=== PATIENT | male | born 1940 | race Caucasian/White ===

== ENCOUNTER 2017-11-27 18:27 | Inpatient (IN) | payer MEDICARE, OTHER ==
[~2017-11-27] VITALS: Ht 170.2 cm; Wt 63.0 kg
--- NOTE | 2017-11-27 | NUR ---
ZOSYN DOSE FROM ED, NON-ADMIN. TO ADMIN SCHEDULED DOSE OF ZOSYN. WAITING FOR [facility] SUPERVISOR BEN TO PROVIDE MED.
[2017-11-27] MEDS ORDERED: QUET25TA PO (18:41)
[2017-11-27] MEDS ORDERED: ACET-2605 PO (18:41)
[2017-11-27] MEDS ORDERED: LEVO200T9 PO (18:41)
[2017-11-27] MEDS ORDERED: DIVA250T6 PO (18:41)
[2017-11-27] MEDS ORDERED: DIVA125T2 PO (18:41)
[2017-11-27] MEDS ORDERED: ALBUTEROL SULFATE 2.5 MG/3 ML NEBU NEB ONE (18:45)
[2017-11-27] MEDS ORDERED: IPRATROPIUM BROMIDE 0.5 MG/2.5 ML NEBU NEB ONE (18:45)
[2017-11-27] MEDS ORDERED: ALBUTEROL SULFATE 2.5 MG/3 ML NEBU ONE (18:46)
[2017-11-27] MEDS ORDERED: IPRATROPIUM BROMIDE 0.5 MG/2.5 ML NEBU ONE (18:46)
--- NOTE | 2017-11-27 19:01 | NUR ---
Dr Gale is at bedside, evaluating the patient.
--- NOTE | 2017-11-27 19:03 | NUR ---
SBAR to ALIZA diaz
[2017-11-27 19:09] LABS: BASOPHILS % (AUTO) 0.3 % (0.0-2.0); EOSINOPHILS % (AUTO) 0.1 % (0.0-7.0); HEMATOCRIT 36.8 % (36.7-47.1); HEMOGLOBIN 12.7 g/dL (12.5-16.3); LYMPHOCYTES # (AUTO) 0.6 K/uL (20.0-40.0); LYMPHOCYTES % (AUTO) 7.4 % (20.5-51.5); MEAN CORPUSCULAR HEMOGLOBIN 30.6 uug (23.8-33.4); MEAN CORPUSCULAR HGB CONC 35 g/dL (32.5-36.3); MEAN CORPUSCULAR VOLUME 88.4 fL (73.0-96.2); MONOCYTES # (AUTO) 0.6 K/uL (2.0-10.0); MONOCYTES % (AUTO) 7.4 % (0.0-11.0); NEUTROPHILS % (AUTO) 84.8 % (38.5-71.5); PLATELET COUNT (AUTO) 205 K/uL (152-348); RED BLOOD CELL COUNT(AUTO) 4.16 MIL/uL (4.06-5.63); WHITE BLOOD COUNT (AUTO) 8.3 K/uL (3.6-10.2)
--- NOTE | 2017-11-27 19:11 | NUR ---
XRAY AT BEDSIDE.
--- NOTE | 2017-11-27 19:15 | NUR ---
REPORT RECEIVED FROM ALIZA LAW. LAB RESULTS HAVE BEEN REVIEWED. PT IN BED. PT'S CAREGIVER AT BEDSIDE. CONDUCTED SHIFT CHANGE ASSESSMENT. PT IS NON VERBAL AND UNABLE TO ASSESS MENTAL STATUS. PT CURRENTLY RECEIVING BREATHING TX.
[2017-11-27 19:21] LABS: CARBON DIOXIDE 29 mmol/L (21-32); CHLORIDE 105 mmol/L (98-107); CREATININE 1.2 mg/dL (0.6-1.3); GLUCOSE 106 mg/dL (74-106); POTASSIUM 3.6 mmol/L (3.5-5.1); UREA NITROGEN, BLOOD 19 mg/dL (7-18)
[2017-11-27 19:37] LABS: ALANINE AMINOTRANSFERASE 22 U/L (16-63); ALKALINE PHOSPHATASE 61 U/L (50-136); ASPARTATE AMINOTRANSFERASE 34 U/L (15-37); BILIRUBIN,DIRECT 0.2 mg/dL (0.0-0.2); BILIRUBIN,TOTAL 1.1 mg/dL (0.2-1.0)
[2017-11-27] MEDS ORDERED: ASPIRIN 325 MG TABLET PO ONE (19:45)
[2017-11-27] MEDS ORDERED: PANTOPRAZOLE SODIUM 40 MG VIAL IV ONE (19:45)
[2017-11-27] MEDS ORDERED: ASPIRIN 325 MG TABLET ONE (19:51)
[2017-11-27] MEDS ORDERED: PANTOPRAZOLE SODIUM 40 MG VIAL ONE (19:52)
[2017-11-27] MEDS ORDERED: ACETAMINOPHEN ES 500 MG TABLET PO ONE (20:00)
[2017-11-27] MEDS ORDERED: IV NORMAL SALINE 1000 ML BAG IV ONE (20:00)
[2017-11-27] MEDS ORDERED: ACETAMINOPHEN 325 MG SUPP ONE (20:13)
[2017-11-27] MEDS ORDERED: ACETAMINOPHEN 650 MG SUPP.RECT RC ONE (20:15)
[2017-11-27] MEDS ORDERED: ACETAMINOPHEN 325 MG SUPP RC ONE (20:15)
[2017-11-27] MEDS ORDERED: CEFTRIAXONE 1 G in IV DEXTROSE 5% 50 ML IV ONE (20:30)
[2017-11-27 20:50] LABS: *BILIRUBIN,URIN NEGATIVE (NEGATIVE); *BLOOD, URINE 1+ (NEGATIVE); *CLARITY,URINE CLEAR (CLEAR); *COLOR,URINE YELLOW (YELLOW); *KETONES,URINE 2+ (NEGATIVE); *PROTEIN,URINE 2+ (NEGATIVE); LEUKOCYTE ESTERASE ,URINE NEGATIVE (NEGATIVE); NITRITE, URINE NEGATIVE (NEGATIVE); PH,URINE 6.5 (5.0-8.0); UGLUCOSE NEGATIVE (NEGATIVE)
[2017-11-27 20:57] LABS: BACTERIA,URINE NONE SEEN /HPF (NONE SEEN); SQUAMOUS EPITHELIAL CELL,UR FEW /HPF (NONE SEEN); WBC,URINE 0-3 /HPF (0-3)
[2017-11-27] MEDS ORDERED: CEFTRIAXONE 1 G VIAL ONE (20:59)
[2017-11-27] MEDS ORDERED: PIPERACILLIN SODIUM/TAZOBACTAM 3.375 G in IV DEXTROSE 5% 50 ML IV ONE (21:00)
[2017-11-27] MEDS ORDERED: VANCOMYCIN IV 1,000 MG in IV DEXTROSE 5% 250 ML IV ONE (21:00)
--- NOTE | 2017-11-27 21:15 | NUR ---
REPORT GIVEN TO TELEMETRY NURSE, ALIZA RODRIGUEZ.
[2017-11-27] MEDS ORDERED: MAGNESIUM HYDROXIDE 30 ML LIQUID UDC PO PRN (21:30)
[2017-11-27] MEDS ORDERED: PIPERACILLIN/TAZOBACTAM/D5W 50 ML IV SCH (21:30)
[2017-11-27] MEDS ORDERED: ONDANSETRON 4 MG/2 ML VIAL IV PRN (21:30)
[2017-11-27] MEDS ORDERED: HYDROCODONE/APAP 5-325MG TABLET PO PRN (21:30)
[2017-11-27] MEDS ORDERED: ZOLPIDEM 5 MG TABLET PO PRN (21:30)
[2017-11-27] MEDS ORDERED: PIPERACILLIN/TAZOBACTAM/D5W 50 ML IV ONE (21:39)
[2017-11-27] MEDS ORDERED: VANCOMYCIN IV 200 ML ONE (22:19)
--- NOTE | 2017-11-27 22:25 | NUR ---
PT RECEIVED FROM ED VIA GURNEY. ORIENTED ROOM. PT A/OX1, BUT ABLE TO MAKE NEEDS KNOWN. WITHDRAWN UPON APPROACH. V/S STABLE. IN NO ACUTE DISTRESS. NO C/O PAIN AT THIS TIME. PT HAS FEVER OF 100.3F, COOLING MEASURES IMPLEMENTED. LIGHT BLANKETS PROVIDED AND ROOM TEMP DECREASED. ON 3LNC, TOLERATING WELL. IV ABX VANCO CONT TO INFUSE FROM ED. PT 83 SINUS RHYTHM ON THE TELE MONITOR. PT HOB ELEVATED. SAFETY MEASURES IMPLEMENTED. BED ALARM SET. CALL LIGHT PLACED WITHIN REACH.
[2017-11-27 22:30] VITALS: BP 102/69
[2017-11-27] MEDS ORDERED: VANCOMYCIN IV 200 ML IV ONE (22:30)
--- NOTE | 2017-11-27 22:30 | NUR ---
Pt. admitted to TELEMETRY, under care of Dr. GILMORE Belongs List completed
[2017-11-27] MEDS ORDERED: PIPERACILLIN SODIUM/TAZO 3.375 GM VIAL ONE (23:59)
[2017-11-28] MEDS ORDERED: PIPERACILLIN/TAZOBACTAM/D5W 50 ML IV ONE
[2017-11-28] MEDS ORDERED: ENOXAPARIN SODIUM 80 MG/0.8 ML DISP.SYRIN SQ ONE (00:15)
[2017-11-28] MEDS ORDERED: ACETAMINOPHEN 325 MG SUPP RC PRN (01:15)
[2017-11-28 04:00] VITALS: BP 110/70
[2017-11-28] MEDS: PIPERACILLIN/TAZOBACTAM/D5W 50 ML IV SCH ×3 (05:03→16:49)
--- NOTE | 2017-11-28 05:25 | NUR ---
END OF SHIFT NOTES. PT SLEPT INTERMITTENTLY THROUGHOUT SHIFT. IV ABX INFUSED. IV KEPT TKO, INTACT AND PATENT. PT REFUSES TO USE NASAL CANULA. TOLERATES RA WELL, NO ACUTE DISTRESS NOTED. PRODUCTIVE COUGH NOTED. SUCTION PROVIDED. MOUTH CARE PERFORMED THROUGHOUT SHIFT. 90 SINUS RHYTHM ON THE TELE MONITOR. PT CONT TO BE NON-COMPLIANT WITH CARE. AGGRESSIVE AND ATTEMPTS TO SWAT NURSES AWAY DURING GOWN OR DIAPER CHANGES. SPITS SPUTUM ON GOWN AND BEDDING THROUGHOUT THE NIGHT. ALL NEEDS ATTENDED. SAFETY MAINTAINED. CALL LIGHT REMAINS WITHIN REACH.
[2017-11-28 06:24] LABS: BASOPHILS % (AUTO) 0.5 % (0.0-2.0); HEMATOCRIT 36.6 % (36.7-47.1); HEMOGLOBIN 12.7 g/dL (12.5-16.3); LYMPHOCYTES # (AUTO) 0.2 K/uL (20.0-40.0); LYMPHOCYTES % (AUTO) 5.1 % (20.5-51.5); MEAN CORPUSCULAR HEMOGLOBIN 30.3 uug (23.8-33.4); MEAN CORPUSCULAR HGB CONC 35 g/dL (32.5-36.3); MEAN CORPUSCULAR VOLUME 87.6 fL (73.0-96.2); MONOCYTES # (AUTO) 0.3 K/uL (2.0-10.0); MONOCYTES % (AUTO) 7.4 % (0.0-11.0); NEUTROPHILS # (AUTO) 3.3 K/uL (1.8-8.9); PLATELET COUNT (AUTO) 183 K/uL (152-348); RED BLOOD CELL COUNT(AUTO) 4.18 MIL/uL (4.06-5.63); WHITE BLOOD COUNT (AUTO) 3.8 K/uL (3.6-10.2)
[2017-11-28 06:44] LABS: CARBON DIOXIDE 27 mmol/L (21-32); CHLORIDE 106 mmol/L (98-107); CREATININE 1.5 mg/dL (0.6-1.3); GLUCOSE 111 mg/dL (74-106); MAGNESIUM 1.9 mg/dL (1.8-2.4); PHOSPHOROUS 3.1 mg/dL (2.5-4.9); POTASSIUM 3.5 mmol/L (3.5-5.1); UREA NITROGEN, BLOOD 20 mg/dL (7-18)
--- NOTE | 2017-11-28 06:45 | NUR ---
PT NOTED TO HAVE BLOOD IN DIAPER CHANGE. IVAN YAP NOTIFIED, AWARE.
--- NOTE | 2017-11-28 06:48 | NUR ---
CRITICAL LAB VALUE, TROP 4.222 REPORTED TO IVAN YAP. ORDERS RECEIVED. D/C ALL TREATMENT WITH HEPARIN AND LOVENOX. EKG TO BE ORDERED.
[2017-11-28] MEDS: LEVOTHYROXINE SODIUM 200 MCG TABLET PO SCH (07:47)
[2017-11-28] MEDS ORDERED: IV NS 1000 ML 1,000 ML IV ONE (08:00)
--- NOTE | 2017-11-28 08:30 | NUR ---
Notified DR Mayer re; troponin positive. 10.29 and showed ekg. New orders received re: asa 81 mg and lovenox 60mg. Notified of prior shift noting blood in urine. Per dr mayer lovenox ok to give and monitor pt for bleeding. Pt confused. IV on right f/a intact. IV infusing as ordered.
[2017-11-28] MEDS: METOPROLOL TARTRATE 25 MG TABLET PO SCH ×2 (08:42→20:39)
[2017-11-28] MEDS: DIVALPROEX 250 MG TABLET.DR PO SCH ×2 (08:42→20:44)
[2017-11-28] MEDS: ASPIRIN 81 MG TAB.CHEW PO SCH (08:42)
[2017-11-28] MEDS: QUETIAPINE FUMARATE 25 MG TABLET PO SCH ×2 (08:42→20:44)
[2017-11-28] MEDS: ACETAMINOPHEN 325 MG TABLET PO PRN ×2 (08:54→16:37)
[2017-11-28 08:59] VITALS: BP 95/51
[2017-11-28] MEDS ORDERED: ASPIRIN 325 MG TABLET PO SCH ×2 (09:00)
[2017-11-28] MEDS ORDERED: VANCOMYCIN IV 1 G in PREMIXED 0 EACH IV ONE (09:00)
[2017-11-28] MEDS ORDERED: ENOXAPARIN SODIUM 80 MG/0.8 ML DISP.SYRIN SQ SCH ×2 (09:00)
[2017-11-28] MEDS ORDERED: ENOXAPARIN SODIUM 40 MG/0.4 ML DISP.SYRIN SQ SCH (09:00)
--- NOTE | 2017-11-28 09:00 | NUR ---
Pt temp 103.1 tylenol given po crushed with pudding. Dr gallo notified of elevated temp BLood cultured ordered x 2 and vanco being hanged at the moment. will monitor pt SEE VS sheet. PT on aspiration precaution. Call light is within reach. TELE SNR.
[2017-11-28 10:14] VITALS: BP 98/51
[2017-11-28] MEDS: ENOXAPARIN SODIUM 60 MG/0.6 ML DISP.SYRIN SQ SCH ×2 (10:37→20:51)
--- NOTE | 2017-11-28 11:26 | NUR ---
Clinical Pharmacy Note: Vancomycin Dosing per Pharmacy Subjective: Vancomycin IV to start on this 77 yo male patient for suspected infection (Per MD note-Sepsis/fever: possibly bronchitis or PNA). Patient received vanco 1gm IVPB x1 on 11/27 at 2100 Objective: BUN 20/Scr 1.5 WBC 3.8 Temperature 99.4 Vanco random level : 9.2 (with am labs) ht 170 cm wt 63 kg Assessment/Plan: Due to elevated srcr, will dose by level. Since vanco random level is 9.2 mcg/ml, will give vanco 1gm IVPB x1 today at 0900. Will check vanco random level will am labs for further dosing. Will follow daily.
[2017-11-28 12:11] VITALS: BP 95/55
[2017-11-28 12:32] LABS: THYROID STIMULATING HORMONE 13.216 mIU/mL (0.358-3.740)
[2017-11-28 15:03] VITALS: BP 96/51
[2017-11-28 15:42] LABS: *CREATININE,URINE 322.2 mg/dL (30-125); *URINE TOTAL PROTEIN RANDOM 175.5 mg/dL (<150/24HR)
[2017-11-28 15:44] LABS: *BLOOD, URINE 3+ (NEGATIVE); *KETONES,URINE TRACE (NEGATIVE); *PROTEIN,URINE 2+ (NEGATIVE); LEUKOCYTE ESTERASE ,URINE NEGATIVE (NEGATIVE); NITRITE, URINE NEGATIVE (NEGATIVE); PH,URINE 5.5 (5.0-8.0); UGLUCOSE NEGATIVE (NEGATIVE)
--- NOTE | 2017-11-28 16:00 | NUR ---
PT put on mittens due to pt was pulling on IV site and f/c. Urine sent to lab earlier. F/c intact. NO active bleeding noted on urine. Call light is within reach.
[2017-11-28] MEDS: DIVALPROEX 125 MG TABLET.DR PO SCH (16:37)
[2017-11-28 19:25] VITALS: BP 90/48
[2017-11-28] MEDS: ATORVASTATIN 40 MG TABLET PO SCH (20:44)
[2017-11-28] MEDS: LACTOBACILLUS RHAMNOSUS GG 1 EACH CAPSULE PO SCH (20:44)
[2017-11-28 20:51] LABS: *BILIRUBIN,URIN 1+ (NEGATIVE); *CLARITY,URINE HAZY (CLEAR); *COLOR,URINE AMBER (YELLOW)
[2017-11-28 20:56] LABS: MUCUS,URINE FEW /LPF (0-FEW); SQUAMOUS EPITHELIAL CELL,UR FEW /HPF (NONE SEEN); URINE AMORPHOUS URATE FEW /HPF; WBC,URINE 0-3 /HPF (0-3)
[2017-11-28] MEDS: LORAZEPAM 2 MG/1 ML VIAL IV PRN (22:17)
[2017-11-28] MEDS: PIPERACILLIN/TAZOBACTAM/D5W 3.375 G in PREMIXED 1 EACH IV SCH (22:18)
[2017-11-29] VITALS (7 sets, daily range): BP systolic 75–100; BP diastolic 41–56
--- NOTE | 2017-11-29 02:44 | NUR ---
Relayed critical lab to on--call Luke. troponin 5.178. His response was "ok"
[2017-11-29] MEDS: PIPERACILLIN/TAZOBACTAM/D5W 3.375 G in PREMIXED 1 EACH IV SCH ×3 (05:30→22:13)
[2017-11-29] MEDS: LEVOTHYROXINE SODIUM 200 MCG TABLET PO SCH (06:03)
[2017-11-29 06:38] LABS: BASOPHILS % (AUTO) 0.3 % (0.0-2.0); HEMATOCRIT 35.2 % (36.7-47.1); HEMOGLOBIN 12.3 g/dL (12.5-16.3); LYMPHOCYTES # (AUTO) 0.5 K/uL (20.0-40.0); LYMPHOCYTES % (AUTO) 5.8 % (20.5-51.5); MEAN CORPUSCULAR HEMOGLOBIN 30.6 uug (23.8-33.4); MEAN CORPUSCULAR HGB CONC 35 g/dL (32.5-36.3); MEAN CORPUSCULAR VOLUME 87.2 fL (73.0-96.2); MONOCYTES # (AUTO) 0.4 K/uL (2.0-10.0); MONOCYTES % (AUTO) 4.5 % (0.0-11.0); NEUTROPHILS % (AUTO) 89.4 % (38.5-71.5); PLATELET COUNT (AUTO) 179 K/uL (152-348); RED BLOOD CELL COUNT(AUTO) 4.04 MIL/uL (4.06-5.63); WHITE BLOOD COUNT (AUTO) 7.9 K/uL (3.6-10.2)
[2017-11-29 06:51] LABS: ALANINE AMINOTRANSFERASE 27 U/L (16-63); ALKALINE PHOSPHATASE 34 U/L (50-136); ASPARTATE AMINOTRANSFERASE 87 U/L (15-37); BILIRUBIN,TOTAL 1.5 mg/dL (0.2-1.0); CARBON DIOXIDE 29 mmol/L (21-32); CHLORIDE 106 mmol/L (98-107); CREATININE 1.5 mg/dL (0.6-1.3); GLUCOSE 87 mg/dL (74-106); MAGNESIUM 2.1 mg/dL (1.8-2.4); PHOSPHOROUS 2.4 mg/dL (2.5-4.9); POTASSIUM 3.1 mmol/L (3.5-5.1); UREA NITROGEN, BLOOD 27 mg/dL (7-18); VANCOMYCIN,RANDOM 7.2 ug/mL (18.0-26.0)
[2017-11-29] MEDS ORDERED: VANCOMYCIN IV 1 G in PREMIXED 0 EACH IV ONE (09:00)
[2017-11-29] MEDS: METOPROLOL TARTRATE 25 MG TABLET PO SCH ×2 (09:00→21:00)
[2017-11-29] MEDS: QUETIAPINE FUMARATE 25 MG TABLET PO SCH ×2 (09:17→20:00)
[2017-11-29] MEDS: ASPIRIN 81 MG TAB.CHEW PO SCH (09:17)
[2017-11-29] MEDS: DIVALPROEX 250 MG TABLET.DR PO SCH ×2 (09:17→20:00)
[2017-11-29] MEDS: LACTOBACILLUS RHAMNOSUS GG 1 EACH CAPSULE PO SCH ×2 (09:17→20:00)
[2017-11-29] MEDS: ENOXAPARIN SODIUM 60 MG/0.6 ML DISP.SYRIN SQ SCH ×2 (09:18→20:00)
[2017-11-29] MEDS: POTASSIUM PHOSPHATE MM 7.5 MMOL in IV DEXTROSE 5% 100 ML IV SCH ×2 (11:48→17:08)
--- NOTE | 2017-11-29 11:58 | NUR ---
DR ROSA IN MADE AWARE OF LOW BP 85/48 WITH ORDERS IV NS 1L BOLUS GIVEN. SR AT 75/MIN
[2017-11-29] MEDS ORDERED: IV NS 1000 ML 1,000 ML IV ONE (12:00)
--- NOTE | 2017-11-29 13:18 | NUR ---
SBP 96/56 DR ROSA MADE AWARE WITH ORDER TO START IVF NS AT 75 MLS/HR
--- NOTE | 2017-11-29 13:53 | NUR ---
Clinical Pharmacy Note: Vancomycin Dosing per Pharmacy Subjective: Vancomycin IV to continue on this 77 yo male patient for suspected infection (Per MD note-Sepsis/fever: possibly bronchitis or PNA). Objective: BUN 27/Scr 1.5 WBC 7.9 Temperature 98.8 Vanco random level : 7.2 (with am labs) ht 170 cm wt 63 kg Assessment/Plan: Due to elevated srcr, will dose by level. Since vanco random level is 7.2 mcg/ml, vanco 1gm IVPB x1 was given today at 0900. Will check vanco random level with am labs for further dosing. Will follow daily.
[2017-11-29] MEDS: IV NS 1000 ML 1,000 ML IV PRN (14:41)
[2017-11-29] MEDS: DIVALPROEX 125 MG TABLET.DR PO SCH (17:08)
--- NOTE | 2017-11-29 17:44 | NUR ---
CONTINUE CURRENT TX PLAN. NO SS OF DISTRESS
[2017-11-29] MEDS: ATORVASTATIN 40 MG TABLET PO SCH (20:00)
[2017-11-29] MEDS: ALBUTEROL SULFATE 2.5 MG/3 ML NEBU NEB PRN (21:27)
[2017-11-30] VITALS: BP 102/50
[2017-11-30 04:00] VITALS: BP 117/66
[2017-11-30] MEDS: LORAZEPAM 2 MG/1 ML VIAL IV PRN ×2 (04:05→20:47)
[2017-11-30] MEDS: ALBUTEROL SULFATE 2.5 MG/3 ML NEBU NEB PRN (04:43)
[2017-11-30] MEDS: PIPERACILLIN/TAZOBACTAM/D5W 3.375 G in PREMIXED 1 EACH IV SCH (05:23)
[2017-11-30] MEDS: LEVOTHYROXINE SODIUM 200 MCG TABLET PO SCH (06:20)
[2017-11-30 06:54] LABS: ALANINE AMINOTRANSFERASE 30 U/L (16-63); ALKALINE PHOSPHATASE 39 U/L (50-136); ASPARTATE AMINOTRANSFERASE 82 U/L (15-37); CARBON DIOXIDE 28 mmol/L (21-32); CHLORIDE 109 mmol/L (98-107); CREATININE 1.2 mg/dL (0.6-1.3); GLUCOSE 87 mg/dL (74-106); MAGNESIUM 2.3 mg/dL (1.8-2.4); POTASSIUM 3.3 mmol/L (3.5-5.1); TOTAL PROTEIN, SERUM 6.1 g/dL (6.4-8.2); UREA NITROGEN, BLOOD 21 mg/dL (7-18)
[2017-11-30 07:11] LABS: VANCOMYCIN,RANDOM 7.5 ug/mL (18.0-26.0)
--- NOTE | 2017-11-30 07:29 | NUR ---
resting comfortably in bed with no ss opf pain or distress continue tele observation SR on monitor
[2017-11-30 07:57] LABS: BASOPHILS % (AUTO) 0.3 % (0.0-2.0); HEMATOCRIT 36.1 % (36.7-47.1); HEMOGLOBIN 12.6 g/dL (12.5-16.3); LYMPHOCYTES # (AUTO) 0.6 K/uL (20.0-40.0); LYMPHOCYTES % (AUTO) 6.2 % (20.5-51.5); MEAN CORPUSCULAR HEMOGLOBIN 30.4 uug (23.8-33.4); MEAN CORPUSCULAR HGB CONC 35 g/dL (32.5-36.3); MONOCYTES # (AUTO) 0.5 K/uL (2.0-10.0); MONOCYTES % (AUTO) 5.5 % (0.0-11.0); NEUTROPHILS # (AUTO) 8.3 K/uL (1.8-8.9); PLATELET COUNT (AUTO) 200 K/uL (152-348); RED BLOOD CELL COUNT(AUTO) 4.14 MIL/uL (4.06-5.63); WHITE BLOOD COUNT (AUTO) 9.4 K/uL (3.6-10.2)
[2017-11-30] MEDS: QUETIAPINE FUMARATE 25 MG TABLET PO SCH ×2 (08:53→20:30)
[2017-11-30] MEDS: ASPIRIN 81 MG TAB.CHEW PO SCH (08:53)
[2017-11-30] MEDS: LACTOBACILLUS RHAMNOSUS GG 1 EACH CAPSULE PO SCH ×2 (08:53→20:30)
[2017-11-30] MEDS: DIVALPROEX 250 MG TABLET.DR PO SCH ×2 (08:53→20:30)
[2017-11-30] MEDS: ENOXAPARIN SODIUM 60 MG/0.6 ML DISP.SYRIN SQ SCH ×2 (08:55→20:29)
[2017-11-30] MEDS: VANCOMYCIN IV 1 G in PREMIXED 0 EACH IV SCH (08:57)
[2017-11-30] MEDS: Z GUARD REMEDY PASTE 57 GM TUBE TOP PRN (08:57)
[2017-11-30 11:40] VITALS: BP 99/59
--- NOTE | 2017-11-30 12:00 | NUR ---
DR KELLEY IN NOTED LOW K WITH ORDERS. PT TRIED TO TX PATIENT SEE NOTES
[2017-11-30] MEDS: IV NS 1000 ML 1,000 ML IV PRN (12:28)
[2017-11-30] MEDS: PIPERACILLIN/TAZOBACTAM/D5W 50 ML IV SCH ×2 (12:41→17:57)
[2017-11-30] MEDS: POTASSIUM PHOSPHATE MM 7.5 MMOL in IV DEXTROSE 5% 100 ML IV SCH ×2 (13:13→16:45)
--- NOTE | 2017-11-30 14:13 | NUR ---
Clinical Pharmacy Note: Vancomycin Dosing per Pharmacy Subjective: Vancomycin IV to continue on this 77 yo male patient for suspected infection (Per MD note-Sepsis/fever: possibly bronchitis or PNA). Objective: BUN 21/Scr 1.2 WBC 7.9 (11/29) Temperature 98.5 Vanco random level : 7.5 (with am labs) ht 170 cm wt 63 kg Assessment/Plan: As renal function has improved and random levels indicate pt is clearing vanoc, will start regimen of 1gm q22hr for estimated trough of 15.2, first dose today at 0900. If Scr were to become unstable, will d/c regimen and dose per level instead. Will otherwise check trough before 4th scheduled dose. Will follow
--- NOTE | 2017-11-30 15:14 | NUR ---
CONTINUE CURRENT TX PLAN, NO SS OF DISTRESS. BP WNL WITH ONGOING NS AT 75 MLS/HR. TOLERATING IV ANTIBIOTIC. PHARMACY TO CONTINUE TO DOSE VANCO
[2017-11-30 15:48] VITALS: BP 99/65
[2017-11-30] MEDS: DIVALPROEX 125 MG TABLET.DR PO SCH (17:55)
[2017-11-30 20:00] VITALS: BP 103/72
[2017-11-30] MEDS: ATORVASTATIN 40 MG TABLET PO SCH (20:30)
[2017-12-01] VITALS: BP 106/52
[2017-12-01] MEDS: PIPERACILLIN/TAZOBACTAM/D5W 50 ML IV SCH ×4 (00:22→17:43)
[2017-12-01 04:00] VITALS: BP 115/64
[2017-12-01] MEDS: LEVOTHYROXINE SODIUM 200 MCG TABLET PO SCH (06:27)
[2017-12-01 06:47] LABS: BASOPHILS % (AUTO) 0.1 % (0.0-2.0); EOSINOPHILS % (AUTO) 0.2 % (0.0-7.0); HEMATOCRIT 34.9 % (36.7-47.1); HEMOGLOBIN 12.2 g/dL (12.5-16.3); LYMPHOCYTES # (AUTO) 0.6 K/uL (20.0-40.0); LYMPHOCYTES % (AUTO) 7.9 % (20.5-51.5); MEAN CORPUSCULAR HEMOGLOBIN 30.4 uug (23.8-33.4); MEAN CORPUSCULAR HGB CONC 35 g/dL (32.5-36.3); MEAN CORPUSCULAR VOLUME 87.3 fL (73.0-96.2); MONOCYTES # (AUTO) 0.6 K/uL (2.0-10.0); MONOCYTES % (AUTO) 7.2 % (0.0-11.0); NEUTROPHILS # (AUTO) 6.8 K/uL (1.8-8.9); NEUTROPHILS % (AUTO) 84.6 % (38.5-71.5); PLATELET COUNT (AUTO) 228 K/uL (152-348); WHITE BLOOD COUNT (AUTO) 8.1 K/uL (3.6-10.2)
[2017-12-01 07:02] LABS: CARBON DIOXIDE 30 mmol/L (21-32); CHLORIDE 110 mmol/L (98-107); CREATININE 1.1 mg/dL (0.6-1.3); GLUCOSE 76 mg/dL (74-106); MAGNESIUM 2.3 mg/dL (1.8-2.4); PHOSPHOROUS 2.1 mg/dL (2.5-4.9); POTASSIUM 3.4 mmol/L (3.5-5.1); UREA NITROGEN, BLOOD 16 mg/dL (7-18)
--- NOTE | 2017-12-01 07:49 | NUR ---
troponin still elevated patient remains asymptomatic will follow-up with
--- NOTE | 2017-12-01 08:00 | NUR ---
SEEN BY DR ROSA MADE AWARE OF TROPONIN RESULT SAID TO GARCIA VEGANOX. PATIENT REMAINS CONFUSED AND COMBATIVE. CLOSELY MONITORED. HEART MONITOR DCD
[2017-12-01] MEDS: QUETIAPINE FUMARATE 25 MG TABLET PO SCH ×3 (08:43→20:57)
[2017-12-01] MEDS: ASPIRIN 81 MG TAB.CHEW PO SCH (08:43)
[2017-12-01] MEDS: LACTOBACILLUS RHAMNOSUS GG 1 EACH CAPSULE PO SCH ×3 (08:43→20:57)
[2017-12-01] MEDS: DIVALPROEX 250 MG TABLET.DR PO SCH ×3 (08:43→20:57)
[2017-12-01] MEDS: VANCOMYCIN IV 1 G in PREMIXED 0 EACH IV SCH (08:43)
[2017-12-01] MEDS: Z GUARD REMEDY PASTE 57 GM TUBE TOP PRN (08:45)
[2017-12-01] MEDS: ENOXAPARIN SODIUM 60 MG/0.6 ML DISP.SYRIN SQ SCH (08:46)
[2017-12-01 09:28] LABS: BAND % (MANUAL) 5 % (0-10); EOSINOPHILS % (MANUAL) 2 % (0-8); LYMPHOCYTES % (MANUAL) 7 % (20-40); METAMYELOCYTES % 1 % (0-1); MONOCYTES % (MANUAL) 5 % (2-10); NEUTROPHILS % (MANUAL) 80 % (42-75)
[2017-12-01] MEDS ORDERED: POTASSIUM CHLORIDE 20 MEQ POWDER PACKET PO ONE (10:15)
--- NOTE | 2017-12-01 11:45 | NUR ---
PATIENT VERY RESTLESS WANTS PACHECO OUT. FC DCD REMAINS COMFORTABLE AFTER
[2017-12-01 11:55] VITALS: BP 104/51
--- NOTE | 2017-12-01 12:00 | NUR ---
MD NOTED LOW K WITH ORDERS
[2017-12-01] MEDS: IV NS 1000 ML 1,000 ML IV PRN (12:21)
[2017-12-01] MEDS: LORAZEPAM 2 MG/1 ML VIAL IV PRN (12:39)
[2017-12-01] MEDS ORDERED: POTASSIUM PHOSPHATE MM 7.5 MMOL in IV DEXTROSE 5% 100 ML IV ONE (12:45)
--- NOTE | 2017-12-01 15:18 | NUR ---
INCONTINENT OF URINE KEPT CLEAN AND DRY. NO ACUTE CHANGE
[2017-12-01 15:36] VITALS: BP 119/71
[2017-12-01] MEDS ORDERED: MENT71OI TOP (16:23)
[2017-12-01] MEDS ORDERED: PIPE3.379 IV (16:23)
[2017-12-01] MEDS ORDERED: LACT1CAP57 PO (16:23)
[2017-12-01] MEDS ORDERED: BISA10SU61 RC (16:23)
[2017-12-01] MEDS ORDERED: DOCU-141 PO (16:23)
[2017-12-01] MEDS ORDERED: Acetaminophen Supp RC (16:23)
[2017-12-01] MEDS ORDERED: ATOR40TA PO (16:23)
[2017-12-01] MEDS ORDERED: ALBU2.5V7 NEB (16:23)
[2017-12-01] MEDS ORDERED: QUET25TA PO (16:23)
[2017-12-01] MEDS ORDERED: ACET325T53 PO (16:23)
[2017-12-01] MEDS ORDERED: DIVA125T2 PO (16:23)
[2017-12-01] MEDS ORDERED: LEVO200T PO (16:23)
[2017-12-01] MEDS ORDERED: ASPI81TA31 PO (16:23)
[2017-12-01] MEDS: DIVALPROEX 125 MG TABLET.DR PO SCH (17:43)
--- NOTE | 2017-12-01 20:00 | NUR ---
RECEIVED REPORT THAT PATIENT IS WAITING TO BE PICKED UP AND TRANSFERRED TO [facility]. PATIENT IS ALERT TO SELF ONLY. VERY CONFUSED AND DISORIENTED. NO S/S OF PAIN OR DISCOMFORT. NO RESP. DISTRESS NOTED. VS WNL. H/L INTACT AND PATENT. PATIENT WILL BE DISCHARGED WITH [place]. BED ALARM ON. CALL LIGHT IN REACH. ALL NEEDS ATTENDED. WILL CONTINUE TO MONITOR.
--- NOTE | 2017-12-01 20:50 | NUR ---
AMBULANCE TRANSPORT AT BEDSIDE TO SUPERVISOR IN CHARGE PATIENT.
[2017-12-01] MEDS: ATORVASTATIN 40 MG TABLET PO SCH ×2 (20:51→20:57)
--- NOTE | 2017-12-01 21:00 | NUR ---
PATIENT LEFT FACILITY IN STABLE CONDITION. VS WNL. REPORT GIVEN TO AMBULANCE TRANSPORT. ALL NEEDS ATTENDED.
== END 2017-12-01 21:03 | DRG 871 ==
LOC: EDBD 18:30 → ER 18:30 → TELE 21:31 → MED 12-01 11:09
PROVIDERS: ADMIT Internal Medicine; ATTEND Internal Medicine
DX: A41.9 Sepsis, unspecified organism (principal); J69.0 Pneumonitis due to inhalation of food and vomit; J96.01 Acute respiratory failure with hypoxia; I21.A1 Myocardial infarction type 2; E43 Unspecified severe protein-calorie malnutrition; N17.0 Acute kidney failure with tubular necrosis; G92 Toxic encephalopathy; D68.59 Other primary thrombophilia; E83.39 Other disorders of phosphorus metabolism; R47.01 Aphasia; F03.90 Unspecified dementia, unspecified severity, without behavioral disturbance, psychotic disturbance, mood disturbance, and anxiety; R65.20 Severe sepsis without septic shock; E03.9 Hypothyroidism, unspecified; Z79.899 Other long term (current) drug therapy; Z68.21 Body mass index [BMI] 21.0-21.9, adult; I25.10 Atherosclerotic heart disease of native coronary artery without angina pectoris; Z79.82 Long term (current) use of aspirin; E87.6 Hypokalemia; J98.4 Other disorders of lung; E86.0 Dehydration; R13.10 Dysphagia, unspecified
CPT/HCPCS: 36415; 70030-TC; 71045; 83605; 83735; 84100; 84156; 84300; 84443; 85025; 85730; 87040; 87070; 87086; 87400; 92523; 92526; 93005; 93307; 94640; A4663; C1758; C9113; J0696; J1650; J2060; J2543; J3370; J3490; J3590; J7030; J7050; J7060

== ENCOUNTER 2017-12-04 21:52 | Inpatient (IN) | payer MEDICARE, OTHER ==
[~2017-12-04] VITALS: Ht 170.2 cm; Wt 72.6 kg
[~2017-12-04 21:52] MED LIST: ACET325T53 PO; ALBU2.5V7 NEB; ASPI81TA31 PO; ATOR40TA PO; Acetaminophen Supp RC; BISA10SU61 RC; DIVA125T2 PO; DOCU-141 PO; LACT1CAP57 PO; LEVO200T PO; MENT71OI TOP; PIPE3.379 IV; QUET25TA PO
--- NOTE | 2017-12-04 22:30 | NUR ---
Dr. Gale at bedside for MSE.
[2017-12-04] MEDS ORDERED: LEVO200T9 PO (22:34)
[2017-12-04] MEDS ORDERED: DIVA125T2 PO (22:34)
[2017-12-04] MEDS ORDERED: BISA10SU12 RC (22:34)
[2017-12-04] MEDS ORDERED: ASPI81TA31 PO (22:34)
[2017-12-04] MEDS ORDERED: UTI HEAL PO (22:34)
[2017-12-04] MEDS ORDERED: QUET25TA PO (22:34)
[2017-12-04] MEDS ORDERED: ATOR40TA PO (22:34)
[2017-12-04] MEDS ORDERED: ACET325T53 PO (22:34)
[2017-12-04] MEDS ORDERED: MAGN400O6 PO (22:34)
[2017-12-04] MEDS ORDERED: NA P133E RC (22:34)
[2017-12-04] MEDS ORDERED: LACT1CAP57 PO (22:34)
[2017-12-04] MEDS ORDERED: ACET-2605 PO (22:34)
[2017-12-04] MEDS ORDERED: IV NORMAL SALINE 1000 ML BAG IV ONE (22:45)
--- NOTE | 2017-12-04 22:54 | NUR ---
Pt out of ER for CT.
[2017-12-04 22:57] LABS: BASOPHILS % (AUTO) 0.4 % (0.0-2.0); EOSINOPHILS # (AUTO) 0.1 K/uL (0.0-0.7); EOSINOPHILS % (AUTO) 0.6 % (0.0-7.0); HEMATOCRIT 35.6 % (36.7-47.1); HEMOGLOBIN 12.5 g/dL (12.5-16.3); LYMPHOCYTES # (AUTO) 0.8 K/uL (20.0-40.0); LYMPHOCYTES % (AUTO) 7.4 % (20.5-51.5); MEAN CORPUSCULAR HEMOGLOBIN 30.3 uug (23.8-33.4); MEAN CORPUSCULAR HGB CONC 35 g/dL (32.5-36.3); MEAN CORPUSCULAR VOLUME 86.2 fL (73.0-96.2); MONOCYTES # (AUTO) 1.4 K/uL (2.0-10.0); MONOCYTES % (AUTO) 12.6 % (0.0-11.0); PLATELET COUNT (AUTO) 529 K/uL (152-348); RED BLOOD CELL COUNT(AUTO) 4.13 MIL/uL (4.06-5.63); WHITE BLOOD COUNT (AUTO) 11.4 K/uL (3.6-10.2)
[2017-12-04 23:27] LABS: THYROID STIMULATING HORMONE 26.854 mIU/mL (0.358-3.740)
[2017-12-05 00:13] LABS: *BLOOD, URINE 2+ (NEGATIVE); *CLARITY,URINE SLIGHTLY CLOUDY (CLEAR); *COLOR,URINE YELLOW (YELLOW); *KETONES,URINE 4+ (NEGATIVE); *PROTEIN,URINE 1+ (NEGATIVE); LEUKOCYTE ESTERASE ,URINE TRACE (NEGATIVE); NITRITE, URINE NEGATIVE (NEGATIVE); PH,URINE 7.5 (5.0-8.0); UGLUCOSE NEGATIVE (NEGATIVE)
[2017-12-05 00:16] LABS: *BILIRUBIN,URIN 2+ (NEGATIVE)
[2017-12-05] MEDS ORDERED: LORAZEPAM 2 MG/1 ML VIAL ONE (00:22)
[2017-12-05 00:37] LABS: RBC,URINE 50-80 /HPF (0-3)
[2017-12-05 00:38] LABS: BACTERIA,URINE NONE SEEN /HPF (NONE SEEN); MUCUS,URINE MODERATE /LPF (0-FEW); SQUAMOUS EPITHELIAL CELL,UR MODERATE /HPF (NONE SEEN)
[2017-12-05] MEDS ORDERED: LORAZEPAM 2 MG/1 ML VIAL IV ONE (00:45)
[2017-12-05 00:58] LABS: ALANINE AMINOTRANSFERASE 43 U/L (16-63); ALKALINE PHOSPHATASE 58 U/L (50-136); ASPARTATE AMINOTRANSFERASE 58 U/L (15-37); BILIRUBIN,DIRECT 0.3 mg/dL (0.0-0.2); BILIRUBIN,TOTAL 0.9 mg/dL (0.2-1.0); CARBON DIOXIDE 28 mmol/L (21-32); CHLORIDE 106 mmol/L (98-107); CREATININE 1.1 mg/dL (0.6-1.3); GLUCOSE 85 mg/dL (74-106); TOTAL PROTEIN, SERUM 6.8 g/dL (6.4-8.2); UREA NITROGEN, BLOOD 11 mg/dL (7-18)
[2017-12-05 01:30] LABS: BAND % (MANUAL) 1 % (0-10); LYMPHOCYTES % (MANUAL) 6 % (20-40); MONOCYTES % (MANUAL) 12 % (2-10); NEUTROPHILS % (MANUAL) 81 % (42-75)
[2017-12-05] MEDS ORDERED: diphenhydrAMINE 50 MG/1 ML VIAL IV ONE (01:45)
[2017-12-05] MEDS ORDERED: POTASSIUM CHLORIDE 50 ML IV SCH (01:45)
[2017-12-05] MEDS ORDERED: OLANZAPINE 10 MG VIAL IM ONE ×2 (01:45→01:48)
[2017-12-05] MEDS ORDERED: ASPIRIN 300 MG RECTAL SUPP RC ONE ×2 (01:45→01:47)
[2017-12-05] MEDS ORDERED: diphenhydrAMINE 50 MG/1 ML VIAL ONE (01:48)
[2017-12-05] MEDS ORDERED: POTASSIUM CHLORIDE 50 ML ONE (01:49)
[2017-12-05] MEDS ORDERED: LABETALOL HCL 100 MG/20 ML VIAL IV ONE (03:15)
--- NOTE | 2017-12-05 04:00 | NUR ---
Dr. Gale on panel call with Dr. Butler.
[2017-12-05 04:16] VITALS: BP 136/107
--- NOTE | 2017-12-05 04:16 | NUR ---
Passed report to Jannet ABRAMS Tele.
[2017-12-05] MEDS ORDERED: BISACODYL 10 MG SUPP.RECT RC PRN (05:00)
[2017-12-05] MEDS ORDERED: Z GUARD REMEDY PASTE 57 GM TUBE TOP PRN (05:00)
[2017-12-05] MEDS ORDERED: ZOLPIDEM 5 MG TABLET PO PRN (05:00)
[2017-12-05] MEDS ORDERED: FLEET ENEMA 133 ML BOTTLE RC PRN (05:00)
[2017-12-05] MEDS ORDERED: ACETAMINOPHEN 325 MG TABLET PO PRN (05:00)
[2017-12-05] MEDS ORDERED: ONDANSETRON 4 MG/2 ML VIAL IV PRN (05:00)
[2017-12-05] MEDS ORDERED: MAGNESIUM HYDROXIDE 30 ML LIQUID UDC PO PRN ×2 (05:00)
[2017-12-05] MEDS: LEVOTHYROXINE SODIUM 200 MCG TABLET PO SCH (06:49)
[2017-12-05] MEDS: DIVALPROEX 125 MG TABLET.DR PO SCH ×2 (08:51→21:19)
[2017-12-05] MEDS: LACTOBACILLUS RHAMNOSUS GG 1 EACH CAPSULE PO SCH ×2 (08:51→21:19)
[2017-12-05] MEDS ORDERED: ASPIRIN 325 MG TABLET PO SCH (09:00)
[2017-12-05] MEDS ORDERED: ASPIRIN 81 MG TAB.CHEW PO SCH (09:00)
[2017-12-05 11:37] VITALS: BP 101/52
[2017-12-05] MEDS: CEFTRIAXONE 1 G in IV DEXTROSE 5% 50 ML IV SCH (12:34)
[2017-12-05 16:06] VITALS: BP 123/71
[2017-12-05] MEDS: QUETIAPINE FUMARATE 25 MG TABLET PO PRN (18:41)
--- NOTE | 2017-12-05 18:47 | NUR ---
PT REFUSED THE SEROQUEL SPITTING IT OUT SEVERAL TIMES. CONTINUE TO MONITOR PT.
--- NOTE | 2017-12-05 18:50 | NUR ---
PT IS AWAKE, RESTLESS, REFUSING MEDICATION, AOX1, UNCOOPERATIVE, NO SIGNS OF RESPIRATORY DISTRESS AT THIS TIME. CONTINUE TO MONITOR PT.
[2017-12-05 20:14] VITALS: BP 109/61
[2017-12-05] MEDS: METOPROLOL TARTRATE 25 MG TABLET PO SCH (21:00)
[2017-12-05] MEDS: ATORVASTATIN 40 MG TABLET PO SCH (21:18)
[2017-12-06 00:57] VITALS: BP 148/75
[2017-12-06] MEDS: MORPHINE SULFATE 2 MG/1 ML DISP.SYRIN IV PRN ×2 (02:04→12:49)
[2017-12-06 04:00] VITALS: BP 105/66
[2017-12-06 04:09] LABS: TRIIODOTHYRONINE, FREE 1.2 pg/mL (2.0-4.4)
[2017-12-06] MEDS: LEVOTHYROXINE SODIUM 200 MCG TABLET PO SCH (06:11)
[2017-12-06 06:29] LABS: CARBON DIOXIDE 28 mmol/L (21-32); CHLORIDE 105 mmol/L (98-107); CHOLESTEROL 167 mg/dL (<200); CREATININE 1.1 mg/dL (0.6-1.3); GLUCOSE 79 mg/dL (74-106); HDL CHOLESTEROL 30 mg/dL (40-60); MAGNESIUM 2.1 mg/dL (1.8-2.4); PHOSPHOROUS 3.2 mg/dL (2.5-4.9); TRIGLYCERIDES 150 MG/DL (30-150); UREA NITROGEN, BLOOD 11 mg/dL (7-18)
--- NOTE | 2017-12-06 07:00 | NUR ---
RECEIVED REPORT FROM EARTH MOVER. PATIENT ON BED ASLEEP, NO ACUTE DISTRESS NOTED, CONFUSED WITH EPISODES OF RESTLESSNESS MITTENS ON BOTH HANDS IN PLACE. IV SITE ON LFA #20 INTACT AND PATENT. FOR EGD AND PEG PLACEMENT TODAY @ 0930, WILL NEED TO OBTAIN CONSENT. PATIENT NPO S/P MIDNIGHT. COMFORT MEASURES PROVIDED. CALL LIGHT WITHIN REACH. WILL CONTINUE TO MONITOR CLOSELY. Addendum: 12/06/17 at 1559 by NANDA GORDON RN LATE ENTRY [id number] PATIENT ON CONTACT ISOLATION TO RULE OUT SCABIES. PER EARTH MOVER NURSE SCABIES SCRAPING WAS NOT DONE YESTERDAY BECAUSE NURSE NEEDED TO BE ACCOMPANIED BY PATHOLOGIST. WILL FOLLOW UP TODAY.
[2017-12-06 07:20] LABS: BASOPHILS % (AUTO) 0.4 % (0.0-2.0); EOSINOPHILS # (AUTO) 0.2 K/uL (0.0-0.7); EOSINOPHILS % (AUTO) 1.5 % (0.0-7.0); HEMATOCRIT 36.6 % (36.7-47.1); HEMOGLOBIN 12.8 g/dL (12.5-16.3); LYMPHOCYTES # (AUTO) 1.5 K/uL (20.0-40.0); LYMPHOCYTES % (AUTO) 14.4 % (20.5-51.5); MEAN CORPUSCULAR HEMOGLOBIN 30.3 uug (23.8-33.4); MEAN CORPUSCULAR HGB CONC 35 g/dL (32.5-36.3); MEAN CORPUSCULAR VOLUME 86.5 fL (73.0-96.2); MONOCYTES % (AUTO) 9.6 % (0.0-11.0); NEUTROPHILS # (AUTO) 7.8 K/uL (1.8-8.9); NEUTROPHILS % (AUTO) 74.1 % (38.5-71.5); RED BLOOD CELL COUNT(AUTO) 4.23 MIL/uL (4.06-5.63); WHITE BLOOD COUNT (AUTO) 10.5 K/uL (3.6-10.2)
[2017-12-06 07:24] LABS: PLATELET COUNT (AUTO) 696 K/uL (152-348)
--- NOTE | 2017-12-06 08:00 | NUR ---
CALLED DR. THOMAS TO INFORM HIM THAT PATIENT'S WANTS PROCEDURE EXPLAINED BEFORE GIVING CONSENT. WILL CONTINUE TO MONITOR.
[2017-12-06 08:30] LABS: BAND % (MANUAL) 4 % (0-10); EOSINOPHILS % (MANUAL) 1 % (0-8); LYMPHOCYTES % (MANUAL) 9 % (20-40); METAMYELOCYTES % 2 % (0-1); MONOCYTES % (MANUAL) 12 % (2-10); MYELOCYTES % 3 % (0-0); NEUTROPHILS % (MANUAL) 69 % (42-75)
--- NOTE | 2017-12-06 08:45 | NUR ---
CALLED PATIENT'S DON TO OBTAIN TELEPHONE CONSENT, CONSENT GIVEN, NANDA ABRAMS AND CHARGE NURSE ИВАН WITNESSED AND COMPLETED CONSENT FORM. CALLED OR TO NOTIFY THAT CONSENT WAS OBTAINED.
[2017-12-06] MEDS: DIVALPROEX 125 MG TABLET.DR PO SCH ×3 (09:00→20:57)
[2017-12-06] MEDS: ASPIRIN 81 MG TAB.CHEW PO SCH (09:00)
[2017-12-06] MEDS: LACTOBACILLUS RHAMNOSUS GG 1 EACH CAPSULE PO SCH ×3 (09:00→20:58)
[2017-12-06] MEDS: METOPROLOL TARTRATE 25 MG TABLET PO SCH ×2 (09:00→21:00)
--- NOTE | 2017-12-06 09:50 | NUR ---
PATIENT TAKEN DOWN TO OR FOR EGD AND PEG PLACEMENT.
[2017-12-06 10:10] LABS: CORTISOL 20.2 ug/dL (.)
[2017-12-06] MEDS ORDERED: ETOMIDATE 20 MG/10 ML VIAL IV ONE (10:15)
[2017-12-06] MEDS ORDERED: PROPOFOL 200 MG/20 ML BOTTLE IV ONE (10:15)
--- NOTE | 2017-12-06 11:40 | NUR ---
PATIENT CAME BACK FROM OR, PROCEDURE WELL TOLERATED. VS WITHIN NORMAL LIMITS, WITH IVF NS @ 50CC/HR TO CONSUME. GTUBE IN PLACE. ORDERS FROM DR. THOMAS NOTED AND CARRIED OUT. GTUBE CAN BE USED AT 1300. WILL CONTINUE TO MONITOR CLOSELY.
[2017-12-06] MEDS: CEFTRIAXONE 1 G in IV DEXTROSE 5% 50 ML IV SCH (11:48)
[2017-12-06] MEDS: POTASSIUM CHLORIDE 50 ML IV SCH ×4 (11:48→18:16)
[2017-12-06 12:04] VITALS: BP 123/67
[2017-12-06] MEDS ORDERED: JEVITY 1.2 1000 ML LIQUID GT PRN (12:30)
--- NOTE | 2017-12-06 14:00 | NUR ---
JEVITY 1/2 STARTED AT 10 CC/HR, GOAL IS 70 CC/HR X 22 HRS , INCREASE FEEDING BY 10CC EVERY 6-8 HRS TOLERATED BY PATIENT RECOMMENDED BY DIETITIAN. WILL CONTINUE TO MONITOR CLOSELY.
[2017-12-06 15:05] VITALS: BP 152/84
--- NOTE | 2017-12-06 16:02 | NUR ---
NOTIFIED DR. ENGEL THAT QUALIFIED PERSON NEEDED TO OBTAIN SAMPLE SCABIES SCRAPING. WILL CONTINUE TOP MONITOR.
--- NOTE | 2017-12-06 18:38 | NUR ---
PATIENT ASLEEP ON BED, NO ACUTE DISTRESS NOTED. MITTENS IN PLACE. KEPT CLEAN AND COMFORTABLE. ALL NEEDS ATTENDED AND ANTICIPATED. GTUBE FEEDING INCREASED TO 20CC/HR, WELL TOLERATED. NO RESIDUAL NOTED. WILL CONTINUE TO MONITOR CLOSELY.
[2017-12-06 20:44] VITALS: BP 112/58
[2017-12-06] MEDS: ATORVASTATIN 40 MG TABLET PO SCH (20:58)
--- NOTE | 2017-12-07 00:30 | NUR ---
RECEIVED PATIENT IN BED, AWAKE BUT FORGETFUL, NO S/S OF SOB NO S/S OF CHEST PAIN, NO S/S OF PAIN AT THIS TIME, ABDOMINAL BINDER IN PLACE, ON GTF TOLERATE WELL NO N/V NOTED NO DIARRHEA, NO RESIDUAL NOTED, CONT ON CONTACT ISOLATION , PATIENT REFUSED ORAL CARE, RESIST WITH CARE, PATIENT TRIES TO PULL OXYGEN NASAL CANNULA, TRIES TO REMOVED ABDOMINAL BINDER, CHECK BOTH ARMS CIRCULATION, FREQUENT VISUAL CHECKS DONE. CONT TO MONITOR.
[2017-12-07] MEDS: HYDROCODONE/APAP 5-325MG TABLET PO PRN (02:51)
[2017-12-07 05:55] LABS: BASOPHILS % (AUTO) 0.1 % (0.0-2.0); EOSINOPHILS # (AUTO) 0.1 K/uL (0.0-0.7); EOSINOPHILS % (AUTO) 0.6 % (0.0-7.0); HEMOGLOBIN 12.4 g/dL (12.5-16.3); MEAN CORPUSCULAR HEMOGLOBIN 29.9 uug (23.8-33.4); MEAN CORPUSCULAR HGB CONC 35 g/dL (32.5-36.3); MEAN CORPUSCULAR VOLUME 86.7 fL (73.0-96.2); MONOCYTES # (AUTO) 0.6 K/uL (2.0-10.0); MONOCYTES % (AUTO) 4.3 % (0.0-11.0); NEUTROPHILS # (AUTO) 11.3 K/uL (1.8-8.9); PLATELET COUNT (AUTO) 678 K/uL (152-348); RED BLOOD CELL COUNT(AUTO) 4.16 MIL/uL (4.06-5.63); WHITE BLOOD COUNT (AUTO) 12.9 K/uL (3.6-10.2)
--- NOTE | 2017-12-07 05:56 | NUR ---
PATIENT SLEPT FAIRLY WELL, CONT ON PAIN MANAGEMENT, YELLS AND SCREAMS FOR NO APPARENT REASON, MEDICATED FOR PAIN, ON GTF TOLERATE WELL, NO NAUSEA NO VOMITTING, NO RESIDUAL NOTED, CONTINUE TO GIVE ORAL CARE, BUT REFUSED, PATIENT RESIST WITH CARE, TRIES PULLED OUT TUBING, ABDOMINAL BINDER IN PLACE, CHECK FOR CIRCULATION FREQUENTLY, CONT ON ISOLATION, KEPT COMFORTABLE.
[2017-12-07 05:58] VITALS: BP 120/66
[2017-12-07] MEDS: LEVOTHYROXINE SODIUM 200 MCG TABLET PO SCH (06:03)
[2017-12-07 06:19] LABS: CARBON DIOXIDE 32 mmol/L (21-32); CHLORIDE 105 mmol/L (98-107); GLUCOSE 109 mg/dL (74-106); MAGNESIUM 2.3 mg/dL (1.8-2.4); POTASSIUM 3.2 mmol/L (3.5-5.1); UREA NITROGEN, BLOOD 12 mg/dL (7-18)
--- NOTE | 2017-12-07 07:39 | NUR ---
Confused, screaming at times, agitated, verbally responsive. Repositioned in bed comfortably. G tube feedings on. Bilateral mittens on, monitored per protocol. Contact precaution maintained
--- NOTE | 2017-12-07 08:23 | NUR ---
Bed bath given. Skin assessed fro rash. Patient combative, hitting, kicking through out care. Due medication given with Seroquel.
[2017-12-07] MEDS: DIVALPROEX 125 MG TABLET.DR PO SCH ×2 (08:34→20:11)
[2017-12-07] MEDS: LACTOBACILLUS RHAMNOSUS GG 1 EACH CAPSULE PO SCH ×2 (08:34→20:11)
[2017-12-07] MEDS: ASPIRIN 81 MG TAB.CHEW PO SCH (08:34)
[2017-12-07] MEDS: QUETIAPINE FUMARATE 25 MG TABLET PO PRN ×3 (08:34→18:50)
[2017-12-07] MEDS: METOPROLOL TARTRATE 25 MG TABLET PO SCH ×2 (08:36→20:12)
--- NOTE | 2017-12-07 10:30 | NUR ---
Noted getting out of bed, pulling G tube with him. Transferred to the marisela chair.
--- NOTE | 2017-12-07 11:00 | NUR ---
Skin scraping for scabies done by Juan Armenta, sent to lab
[2017-12-07] MEDS ORDERED: POTASSIUM CHLORIDE 20 MEQ POWDER PACKET GT ONE (11:30)
[2017-12-07 11:40] VITALS: BP 110/49
--- NOTE | 2017-12-07 13:00 | NUR ---
Getting out of the marisela chair, agitated. Assisted back to Marisela chair. Called for 1:1 sitter. Saline lock replaced to RFA. Agitated and aggressive through out. Seroquel given
[2017-12-07] MEDS: CEFTRIAXONE 1 G in IV DEXTROSE 5% 50 ML IV SCH (13:02)
--- NOTE | 2017-12-07 16:30 | NUR ---
Screaming, complaining of pain. Morphine IV given. Resting after.
[2017-12-07] MEDS: MORPHINE SULFATE 4 MG/1 ML DISP.SYRIN IV PRN (16:39)
--- NOTE | 2017-12-07 18:13 | NUR ---
Tolerating G tube feeding. Rate increased to 50 ml/hr. Bilateral mittens monitored per protocol. 1:1 Sitter at bedside.
[2017-12-07 19:26] VITALS: BP 128/63
--- NOTE | 2017-12-07 20:00 | NUR ---
PATIENT AWAKE IN BED, CONFUSED EASILY AGITATED AND RESTLESS. SITTER AT BEDSIDE WITH CLOSE MONITORING OF PATIENT. G-TUBE PATENT PLACEMENT CHECKED NO RESIDUE. SAFETY MEASURES IN PLACE, CALM QUIET ENVIRONMENT PROVIDED.
[2017-12-07] MEDS: ATORVASTATIN 40 MG TABLET PO SCH (20:11)
--- NOTE | 2017-12-08 00:15 | NUR ---
INCREASED G-TUBE FEEDING TO 60CC/HR PER LABOR TRAINING MANAGER RECOMMENDATION. PATIENT TOLERATING FEEDING WELL
[2017-12-08 04:33] VITALS: BP 122/68
[2017-12-08 06:00] LABS: BASOPHILS % (AUTO) 0.3 % (0.0-2.0); EOSINOPHILS # (AUTO) 0.1 K/uL (0.0-0.7); EOSINOPHILS % (AUTO) 1.1 % (0.0-7.0); HEMATOCRIT 33.7 % (36.7-47.1); MEAN CORPUSCULAR HEMOGLOBIN 30.6 uug (23.8-33.4); MEAN CORPUSCULAR HGB CONC 36 g/dL (32.5-36.3); MEAN CORPUSCULAR VOLUME 85.8 fL (73.0-96.2); MONOCYTES # (AUTO) 0.9 K/uL (2.0-10.0); MONOCYTES % (AUTO) 7.6 % (0.0-11.0); NEUTROPHILS # (AUTO) 9.2 K/uL (1.8-8.9); PLATELET COUNT (AUTO) 658 K/uL (152-348); RED BLOOD CELL COUNT(AUTO) 3.93 MIL/uL (4.06-5.63); WHITE BLOOD COUNT (AUTO) 11.2 K/uL (3.6-10.2)
[2017-12-08] MEDS: HYDROCODONE/APAP 5-325MG TABLET PO PRN (06:11)
[2017-12-08] MEDS: LEVOTHYROXINE SODIUM 200 MCG TABLET PO SCH (06:11)
[2017-12-08 06:17] LABS: CARBON DIOXIDE 33 mmol/L (21-32); CHLORIDE 104 mmol/L (98-107); GLUCOSE 120 mg/dL (74-106); POTASSIUM 3.8 mmol/L (3.5-5.1); UREA NITROGEN, BLOOD 11 mg/dL (7-18)
--- NOTE | 2017-12-08 06:23 | NUR ---
PATIENT SLEPT WELL MOST THE SHIFT. PRN PAIN MEDS GIVEN X1. NO ACUTE DISTRESS AT PRESENT. SAFETY AND ASPIRATION PRECAUTIONS IN PLACE. SEATER AT BEDSIDE WITH CLOSE MONITORING OF PATIENT. NO FURTHER CHANGES IN STATUS
[2017-12-08 07:57] VITALS: BP 138/75
[2017-12-08] MEDS: LACTOBACILLUS RHAMNOSUS GG 1 EACH CAPSULE PO SCH (08:38)
[2017-12-08] MEDS: ASPIRIN 81 MG TAB.CHEW PO SCH (08:38)
[2017-12-08] MEDS: QUETIAPINE FUMARATE 25 MG TABLET PO PRN ×3 (08:38→14:52)
[2017-12-08] MEDS: DIVALPROEX 125 MG TABLET.DR PO SCH ×2 (08:38→08:47)
[2017-12-08] MEDS: METOPROLOL TARTRATE 25 MG TABLET PO SCH (08:40)
--- NOTE | 2017-12-08 08:50 | NUR ---
HELD DIVALPOREX SODIUM DUE TO NOT BEING ABLE TO CRUSH MEDICATION AND PUT IT IN THE PEG TUBE.
[2017-12-08] MEDS ORDERED: VALPROIC ACID 250 MG/5 ML LIQUID UDC GT SCH (09:00)
[2017-12-08] MEDS: MORPHINE SULFATE 4 MG/1 ML DISP.SYRIN IV PRN ×2 (11:24→18:38)
[2017-12-08] MEDS ORDERED: diphenhydrAMINE 50 MG/1 ML VIAL IV PRN (11:30)
[2017-12-08] MEDS: CEFTRIAXONE 1 G in IV DEXTROSE 5% 50 ML IV SCH (11:35)
[2017-12-08 11:48] VITALS: BP 105/54
[2017-12-08] MEDS ORDERED: LACT-209 GT (11:54)
[2017-12-08 17:02] VITALS: BP 137/81
--- NOTE | 2017-12-08 17:30 | NUR ---
RECEIVED REPORT FROM RISK OFFICER NURSE, PATIENT IN BED ASLEEP, NO DISTRESS NOTED, BED IN LOW POSITION, SIDE RAILS UP X2, BED ALARM ON, SITTER AT BEDSIDE.
--- NOTE | 2017-12-08 17:32 | NUR ---
PATIENT HAS BEEN CONFUSED ON AND OFF THROUGHOUT THE DAY WITH IMPROVEMENT IN EVENING HOURS. PATIENT STARTED TO MAKE APPROPRIATE CONVERSATION WITH STAFF, AND HAS BEEN MINIMALLY COMBATIVE, BUT HAS AN INTOLERANCE FOR NURSING CARE, AND HYGIENE. CURRENTLY PATIENT IN BED, NO DISTRESS NOTED, BED IN LOW POSITION, SIDE RAILS UP X2. SITTER AT BEDSIDE.
--- NOTE | 2017-12-08 19:38 | NUR ---
PT NOTED TO BE CONFUSED AT THIS TIME, ABLE TO RESPOND TO VERBAL STIMULI. NO S/S OF ACUTE DISTRESS NOTED AT THIS TIME. PT IS TO BE DISCHARGED TODAY. SAFETY ENVIRONMENT PROVIDED. WILL CONTINUE TO MONITOR CLOSELY.
[2017-12-08 20:00] VITALS: BP 138/82
--- NOTE | 2017-12-08 21:06 | NUR ---
Report given to paramedics. Pt AAO x 1. Pt in no distress at this time. Pt discharged in a stable condition. Vital signs WNL.
== END 2017-12-08 21:17 | DRG 640 ==
LOC: ER 21:55 → TELE 12-05 04:25 → MED 12-06 10:30
PROVIDERS: ADMIT Internal Medicine
PROC: 3E0G76Z Introduction of Nutritional Substance into Upper GI, Via Natural or Artificial Opening (ICD-10-PCS; 2017-12-06)
PROC: 0DH63UZ Insertion of Feeding Device into Stomach, Percutaneous Approach (ICD-10-PCS; principal; 2017-12-06 10:10)
DX: R62.7 Adult failure to thrive (principal); E43 Unspecified severe protein-calorie malnutrition; I21.A1 Myocardial infarction type 2; G93.41 Metabolic encephalopathy; I50.33 Acute on chronic diastolic (congestive) heart failure; D68.59 Other primary thrombophilia; R47.01 Aphasia; N39.0 Urinary tract infection, site not specified; R13.10 Dysphagia, unspecified; F03.90 Unspecified dementia, unspecified severity, without behavioral disturbance, psychotic disturbance, mood disturbance, and anxiety; Z74.09 Other reduced mobility; E87.6 Hypokalemia; E03.9 Hypothyroidism, unspecified; L20.9 Atopic dermatitis, unspecified; I25.10 Atherosclerotic heart disease of native coronary artery without angina pectoris; I25.2 Old myocardial infarction; Z79.82 Long term (current) use of aspirin; Z68.25 Body mass index [BMI] 25.0-25.9, adult
CPT/HCPCS: 36415; 43235; 70030-TC; 70450; 71045; 80164; 82533; 83605; 83735; 84100; 84443; 84480; 84481; 85025; 85730; 87040; 87086; 93005; A4217; A4663; C1758; J0696; J1200; J2060; J2270; J2358; J3480; J3490; J7030; J7040; J7060